=== PATIENT | male | born 1965 | race Hispanic/Latino ===

== ENCOUNTER 2018-01-10 09:24 | Inpatient (IN) | payer SELFPAY ==
[~2018-01-10] VITALS: Ht 170.2 cm; Wt 133.7 kg
[2018-01-10] MEDS ORDERED: ONDANSETRON HCL 4 MG/2 ML VIAL ONE (10:19)
[2018-01-10] MEDS ORDERED: DEXAMETHASONE SOD PHOSPHATE 10MG/ML 1ML VIAL ONE (10:19)
[2018-01-10] MEDS ORDERED: KETOROLAC TROMETHAMINE 30MG/ML ONE (10:19)
[2018-01-10] MEDS ORDERED: AMPICILLIN SODIUM/SULBACTAM NA 1.5GM VIAL ONE (10:19)
[2018-01-10 10:25] LABS: BASOPHILS % (AUTO) 0.5 % (0.0-5.0); EOSINOPHILS % (AUTO) 0.3 % (0.0-8.0); HEMATOCRIT 43.1 % (42-54); LYMPHOCYTES % (AUTO) 7.1 % (21.0-51.0); MEAN CORPUSCULAR HEMOGLOBIN 28.6 pg (27.0-33.0); MEAN CORPUSCULAR HGB CONC 34.3 g/dL (32.0-36.0); MEAN CORPUSCULAR VOLUME 83.4 fL (79-99); MONOCYTES % (AUTO) 4.7 % (3.0-13.0); NEUTROPHILS % (AUTO) 87.4 % (40.0-77.0); PLATELET COUNT (AUTO) 272 K/uL (130-400); RED BLOOD CELL COUNT(AUTO) 5.17 MIL/uL (4.50-6.20); RED CELL DISTRIBUTION WIDTH 13.7 % (11.0-15.5); WHITE BLOOD COUNT (AUTO) 18.6 K/uL (4.8-10.8)
[2018-01-10 10:32] LABS: CREATININE 0.8 mg/dL (0.5-1.5); POTASSIUM 3.8 mmol/L (3.5-5.1)
[2018-01-10] MEDS ORDERED: SODIUM CHLORIDE 0.9% 100 ML IV ONE (10:33)
[2018-01-10 10:38] LABS: INR 1.04 (0.85-1.15); PARTIAL THROMBOPLASTIN TIME 31.5 SEC (26.3-35.5); PROTHROMBIN TIME 10.9 SEC (9.6-11.6)
[2018-01-10] MEDS ORDERED: IOHEXOL-350 50ML VIAL IV ONE (11:20)
[2018-01-10 12:28] LABS: ABG BASE EXCESS -0.9 mmol/L (-2.0-3.0); ABG HCO3 23.3 mmol/L (21.0-28.0); ABG OXYGEN SATURATION 96.3 % (95.0-99.0); ABG PCO2 38 mmHg (35-48)
[2018-01-10] MEDS ORDERED: ONDANSETRON HCL 4 MG/2 ML VIAL IVP PRN (18:15)
[2018-01-10 20:00] VITALS: BP 122/76
[2018-01-10] MEDS: UNASYN 3GM+NS 100ML 100 ML IV SCH (20:48)
[2018-01-10] MEDS: FAMOTIDINE 20MG TAB 20 MG TAB PO SCH (20:49)
[2018-01-10] MEDS: ACETAMINOPHEN 325 MG TAB PO PRN (21:05)
[2018-01-11] VITALS (7 sets, daily range): BP systolic 115–135; BP diastolic 68–78
[2018-01-11] MEDS: UNASYN 3GM+NS 100ML 100 ML IV SCH ×4 (01:59→18:13)
[2018-01-11] MEDS: ACETAMINOPHEN 325 MG TAB PO PRN (05:30)
[2018-01-11 05:55] LABS: HEMATOCRIT 42.2 % (42-54); MEAN CORPUSCULAR HEMOGLOBIN 28.6 pg (27.0-33.0); MEAN CORPUSCULAR HGB CONC 34.4 g/dL (32.0-36.0); MEAN CORPUSCULAR VOLUME 83.3 fL (79-99); PLATELET COUNT (AUTO) 323 K/uL (130-400); RED BLOOD CELL COUNT(AUTO) 5.07 MIL/uL (4.50-6.20); RED CELL DISTRIBUTION WIDTH 13.9 % (11.0-15.5); WHITE BLOOD COUNT (AUTO) 21.1 K/uL (4.8-10.8)
[2018-01-11 06:06] LABS: CREATININE 0.8 mg/dL (0.5-1.5); POTASSIUM 4.1 mmol/L (3.5-5.1)
[2018-01-11 06:13] LABS: LYMPHOCYTES % (MANUAL) 10 % (22-44); MAN.DIFF COMMENT-IMPRESSION MANUAL DIFFERENTIAL; MONOCYTES % (MANUAL) 3 % (2-9); SEGMENTED NEUTROPHILS % 87 % (40-70)
[2018-01-11 06:14] LABS: PLATELET MORPHOLOGY COMMENT ADEQUATE
[2018-01-11] MEDS: FAMOTIDINE 20MG TAB 20 MG TAB PO SCH ×2 (08:59→20:21)
[2018-01-11] MEDS: PREDNISONE 20 MG TABLET PO SCH (08:59)
[2018-01-11] MEDS ORDERED: CHLORHEXIDINE GLUCONATE 473 ML MOUTHWASH MM SCH (09:45)
[2018-01-11] MEDS: METHYLPREDNISOLONE SOD SUCC 40MG/ML 1ML IVP SCH ×2 (12:41→20:21)
[2018-01-11] MEDS: METRONIDAZOLE 500MG/100ML BAG 100 ML IV SCH ×2 (14:00→20:54)
[2018-01-11] MEDS: IBUPROFEN 400 MG TABLET PO PRN (20:21)
[2018-01-12] MEDS: UNASYN 3GM+NS 100ML 100 ML IV SCH ×2 (00:10→05:36)
[2018-01-12 03:00] VITALS: BP 132/76
[2018-01-12] MEDS: METHYLPREDNISOLONE SOD SUCC 40MG/ML 1ML IVP SCH (04:36)
[2018-01-12] MEDS: METRONIDAZOLE 500MG/100ML BAG 100 ML IV SCH (05:36)
[2018-01-12 06:09] LABS: HEMATOCRIT 40.7 % (42-54); MEAN CORPUSCULAR HEMOGLOBIN 28.4 pg (27.0-33.0); MEAN CORPUSCULAR HGB CONC 33.9 g/dL (32.0-36.0); MEAN CORPUSCULAR VOLUME 83.9 fL (79-99); PLATELET COUNT (AUTO) 332 K/uL (130-400); RED BLOOD CELL COUNT(AUTO) 4.85 MIL/uL (4.50-6.20); RED CELL DISTRIBUTION WIDTH 13.8 % (11.0-15.5)
[2018-01-12 06:19] LABS: CREATININE 0.9 mg/dL (0.5-1.5); POTASSIUM 4.6 mmol/L (3.5-5.1)
[2018-01-12] MEDS: IBUPROFEN 400 MG TABLET PO PRN ×2 (06:29→20:32)
[2018-01-12 07:00] VITALS: BP 138/79
[2018-01-12] MEDS: PREDNISONE 20 MG TABLET PO SCH (08:00)
[2018-01-12] MEDS: FAMOTIDINE 20MG TAB 20 MG TAB PO SCH ×2 (09:06→20:31)
[2018-01-12 11:00] VITALS: BP 131/76
[2018-01-12] MEDS ORDERED: VANCOMYCIN PROTOCOL PER PHARMACY IV SCH (12:00)
[2018-01-12] MEDS ORDERED: COMPOUND IV REFRIGERATED 1 EACH IVSOLN MISC PRN (12:15)
[2018-01-12] MEDS: ZOSYN 3.375GM+NS 50ML 50 ML IV SCH ×2 (12:23→20:31)
[2018-01-12] MEDS: VANCOMYCIN 2 GM in SODIUM CHLORIDE 0.9% 500ML 500 ML IV SCH (12:37)
[2018-01-12] MEDS ORDERED: DEXTROSE 50%-WATER 50 ML DISP.SYRIN IV PRN (14:45)
[2018-01-12] MEDS ORDERED: GLUCAGON 1MG KIT 1 MG ML IM PRN (14:45)
[2018-01-12 16:00] VITALS: BP 137/75
[2018-01-12 20:00] VITALS: BP 134/74
[2018-01-13 00:10] VITALS: BP 120/76
[2018-01-13] MEDS: VANCOMYCIN 2 GM in SODIUM CHLORIDE 0.9% 500ML 500 ML IV SCH ×2 (00:37→12:10)
[2018-01-13] MEDS: IBUPROFEN 400 MG TABLET PO PRN ×3 (03:59→17:13)
[2018-01-13] MEDS: ZOSYN 3.375GM+NS 50ML 50 ML IV SCH ×3 (03:59→20:00)
[2018-01-13 04:00] VITALS: BP 129/79
[2018-01-13 04:47] LABS: HEMATOCRIT 40.8 % (42-54); MEAN CORPUSCULAR HEMOGLOBIN 28.7 pg (27.0-33.0); MEAN CORPUSCULAR VOLUME 84.6 fL (79-99); PLATELET COUNT (AUTO) 349 K/uL (130-400); RED BLOOD CELL COUNT(AUTO) 4.82 MIL/uL (4.50-6.20); RED CELL DISTRIBUTION WIDTH 13.7 % (11.0-15.5); WHITE BLOOD COUNT (AUTO) 13.2 K/uL (4.8-10.8)
[2018-01-13 05:01] LABS: CREATININE 0.9 mg/dL (0.5-1.5); POTASSIUM 4.1 mmol/L (3.5-5.1)
[2018-01-13 07:00] VITALS: BP 121/87
[2018-01-13] MEDS: FAMOTIDINE 20MG TAB 20 MG TAB PO SCH ×2 (10:02→20:00)
[2018-01-13] MEDS: PREDNISONE 20 MG TABLET PO SCH (10:02)
[2018-01-13 11:00] VITALS: BP 127/79
[2018-01-13 16:00] VITALS: BP 146/93
[2018-01-13 20:00] VITALS: BP 141/82
[2018-01-14] VITALS: BP 124/86
[2018-01-14] MEDS: VANCOMYCIN 2 GM in SODIUM CHLORIDE 0.9% 500ML 500 ML IV SCH (01:16)
[2018-01-14 04:00] VITALS: BP 134/80
[2018-01-14] MEDS: ZOSYN 3.375GM+NS 50ML 50 ML IV SCH (04:55)
[2018-01-14] MEDS: IBUPROFEN 400 MG TABLET PO PRN (05:18)
[2018-01-14 05:24] LABS: HEMATOCRIT 41.9 % (42-54); MEAN CORPUSCULAR HEMOGLOBIN 28.4 pg (27.0-33.0); MEAN CORPUSCULAR VOLUME 83.5 fL (79-99); PLATELET COUNT (AUTO) 359 K/uL (130-400); RED BLOOD CELL COUNT(AUTO) 5.01 MIL/uL (4.50-6.20); RED CELL DISTRIBUTION WIDTH 13.5 % (11.0-15.5); WHITE BLOOD COUNT (AUTO) 10.7 K/uL (4.8-10.8)
[2018-01-14 05:26] LABS: CREATININE 0.9 mg/dL (0.5-1.5); POTASSIUM 4.3 mmol/L (3.5-5.1)
[2018-01-14 08:00] VITALS: BP 143/71
[2018-01-14] MEDS ORDERED: VANCOMYCIN 1.5 GM in SODIUM CHLORIDE 0.9% 250 ML IV SCH (09:00)
[2018-01-14] MEDS ORDERED: ENOXAPARIN SODIUM 30 MG/0.3 ML SQ SCH (09:00)
[2018-01-14] MEDS: PREDNISONE 20 MG TABLET PO SCH (09:51)
[2018-01-14] MEDS: FAMOTIDINE 20MG TAB 20 MG TAB PO SCH (09:51)
[2018-01-14] MEDS: ACETAMINOPHEN 325 MG TAB PO PRN (09:52)
[2018-01-14] MEDS ORDERED: CLIN300C9 PO (10:28)
[2018-01-14 12:06] VITALS: BP 141/91
== END 2018-01-14 13:10 | disposition home or self-care (01) | DRG 603 ==
LOC: EDH 09:24 → EDHIP 09:25 → 3CH 17:22
PROVIDERS: ADMIT Family Medicine; ATTEND Family Medicine
DX: L03.211 Cellulitis of face (principal); Z68.42 Body mass index [BMI] 45.0-49.9, adult; R03.0 Elevated blood-pressure reading, without diagnosis of hypertension; G47.33 Obstructive sleep apnea (adult) (pediatric); E66.01 Morbid (severe) obesity due to excess calories; E11.9 Type 2 diabetes mellitus without complications
CPT/HCPCS: 36415; 36600; 70487; 71045; 80048; 80202; 82803; 82948; 83605; 85025; 85027; 85610; 85730; 87040; J0295; J1100; J1650; J1885; J2405; J2543; J2920; J3370; J3490; J7030; J7040; Q9967